=== PATIENT | female | born 1995 | race Caucasian/White ===

== ENCOUNTER 2019-10-04 15:31 | Emergency (ER) | payer OTHER ==
[~2019-10-04] VITALS: Ht 167.6 cm; Wt 57.6 kg
[2019-10-04 15:37] VITALS: BP 138/80; Ht 167.6 cm; Wt 57.6 kg
== END 2019-10-04 16:29 | disposition home or self-care (01) ==
LOC: ED 15:31
DX: J02.9 Acute pharyngitis, unspecified (principal)

== ENCOUNTER 2020-06-15 12:15 | Emergency (ER) | payer OTHER ==
[~2020-06-15] VITALS: Ht 167.6 cm; Wt 57.2 kg
[2020-06-15 12:25] VITALS: Ht 167.6 cm; Wt 57.2 kg
[2020-06-15 14:04] VITALS: BP 129/69
== END 2020-06-15 14:04 | disposition home or self-care (01) ==
LOC: ED 12:15
DX: J32.9 Chronic sinusitis, unspecified (principal); R51 Headache; R50.9 Fever, unspecified